=== PATIENT | female | born 1955 | race Caucasian/White ===

== ENCOUNTER 2018-03-21 20:19 | Emergency (ER) | payer OTHER ==
[2018-03-21] MEDS ORDERED: NS 0.9% 1000 ML* 1,000 ML IV ONE (22:32)
[2018-03-21 22:53] LABS: ABS Basophils 0 10^3/ul (0-0.2); ABS Eosinophils 0.1 10^3/ul (0-0.6); ABS Lymphocytes 1.9 10^3/ul (1.0-4.8); ABS Monocytes 0.8 10^3/ul (0-0.8); ABS Neutrophils 3.5 10^3/ul (1.5-7.7); ABS Nucleated RBC 0 10^3/ul; Eosinophil % 1.2 %; Hematocrit 38 % (35-47); Lymphocyte % 29.6 %; Mean Corpuscular HGB Conc 34 g/dl (31-36); Mean Corpuscular Hemoglobin 34 pg (27-31); Mean Corpuscular Volume 100 fL (80-97); Mean Platelet Volume 6.8 fL (7.4-10.4); Nucleated Red Blood Cells % 0.1; Platelet Count 281 10^3/ul (150-450); Red Blood Count 3.83 10^6/ul (4.00-5.40); Red Cell Distribution Width 12 % (10.5-15); White Blood Count 6.3 10^3/ul (3.5-10.8)
[2018-03-21 23:09] LABS: EGFR Non-African American 67.3 (>60)
[2018-03-21] MEDS ORDERED: Iohexol 300* (CONTRAST) 10 ML SDV IV ONE (23:48)
--- NOTE | 2018-03-22 00:34 | ED ---
Abdominal Pain/Female - HPI Summary HPI Summary: Patient complains of diarrhea 1 week with associated abdominal cramping and increased urge to defecate. Patient states diarrhea 7-8 times a day. Abdominal pain described as bilateral lower abdominal cramping, intermittent, relieved with bowel movement. Patient states decreased appetite but tolerating fluids. Denies active abdominal pain at this time. Denies blood in stool, foreign travel, contact exposure, fever, cough, sore throat, CP, SOB, N/V, change in urine. Medical history is none. Abdominal surgical history is positive. Bowel with simultaneous appendectomy 2001, with follow-up surgery 6 months later for anastomosis. - History of Current Complaint Chief Complaint: EDNauseaVomitDiarrh Stated Complaint: DIARRHEA/ABD PAIN Time Seen by Provider: 03/21/18 22:14 Hx Obtained From: Patient Onset/Duration: Gradual Onset, Lasting Days Timing: Intermittent Episode Lasting Severity Currently: None Pain Intensity: 7 Pain Scale Used: 0-10 Numeric Location: Discrete At: RLQ, Discrete At: LLQ, Suprapubic Radiates: No Character: Cramping Aggravating Factor(s): Nothing Alleviating Factor(s): Nothing Associated Signs and Symptoms: Positive: Diarrhea Allergies/Adverse Reactions: Allergies Allergy/AdvReac Type Severity Reaction Status Date / Time No Known Allergies Allergy Verified 03/21/18 20:28 PMH/Surg Hx/FS Hx/Imm Hx Endocrine/Hematology History: Denies: Hx Anticoagulant Therapy, Hx Diabetes Cardiovascular History: Denies: Hx Cardiac Arrest, Hx Hypertension History: Denies: Hx Dialysis, Hx Renal Disease Neurological History: Denies: Hx CVA Psychiatric History: Denies: Hx Autism - Surgical History Surgery Procedure, Year, and Place: OOPHORECTOMY/SALPINGECTOMY (?RIGHT). APPY. BOWEL RESECTION/COLOSTOMY/REVERSAL. HERNIA REPAIR Infectious Disease History: No Infectious Disease History: Denies: Traveled Outside the [place] in Last 30 Days - Family History Known Family History: Positive: Hypertension - Social History Alcohol Use: Weekly Substance Use Type: Reports: None Smoking Status (MU): Light Every Day Tobacco Smoker Amount Used/How Often: PT IN THE PROCESS OF QUITTING Have You Smoked in the Last Year: Yes Review of Systems Constitutional: Negative Eyes: Negative ENT: Negative Cardiovascular: Negative Respiratory: Negative Positive: Abdominal Pain, Diarrhea Genitourinary: Negative Musculoskeletal: Negative Skin: Negative Neurological: Negative Psychological: Normal All Other Systems Reviewed And Are Negative: Yes Physical Exam Triage Information Reviewed: Yes Vital Signs On Initial Exam: Initial Vitals Temp Pulse Resp BP Pulse Ox 98.2 F 73 16 113/68 96 03/21/18 20:24 03/21/18 20:24 03/21/18 20:24 03/21/18 20:24 03/21/18 20:24 Vital Signs Reviewed: Yes Appearance: Positive: Well-Appearing Skin: Positive: Warm Head/Face: Positive: Normal Head/Face Inspection Eyes: Positive: Normal Neck: Positive: Supple Respiratory/Lung Sounds: Positive: Clear to Auscultation Cardiovascular: Positive: Normal Abdomen Description: Positive: Nontender Musculoskeletal: Positive: Normal Neurological: Positive: Normal Psychiatric: Positive: Normal AVPU Assessment: Alert - Lena Coma Scale Best Eye Response: 4 - Spontaneous Best Motor Response: 6 - Obeys Commands Best Verbal Response: 5 - Oriented Coma Scale Total: 15 Diagnostics - Vital Signs Vital Signs Temp Pulse Resp BP Pulse Ox 03/21/18 20:24 98.2 F 73 16 113/68 96 - Laboratory Lab Results: Lab Results 03/21/18 03/21/18 Range/Units 22:40 22:40 WBC 6.3 (3.5-10.8) 10^3/ul RBC 3.83 L (4.00-5.40) 10^6/ul Hgb 13.0 (12.0-16.0) g/dl Hct 38 (35-47) % MCV 100 H (80-97) fL MCH 34 H (27-31) pg MCHC 34 (31-36) g/dl RDW 12 (10.5-15) % Plt Count 281 (150-450) 10^3/ul MPV 6.8 L (7.4-10.4) fL Neut % (Auto) 55.9 % Lymph % (Auto) 29.6 % Ceiba % (Auto) 12.8 % Eos % (Auto) 1.2 % Baso % (Auto) 0.5 % Absolute Neuts (auto) 3.5 (1.5-7.7) 10^3/ul Absolute Lymphs (auto) 1.9 (1.0-4.8) 10^3/ul Absolute Monos (auto) 0.8 (0-0.8) 10^3/ul Absolute Eos (auto) 0.1 (0-0.6) 10^3/ul Absolute Basos (auto) 0 (0-0.2) 10^3/ul Absolute Nucleated RBC 0 10^3/ul Nucleated RBC % 0.1 Sodium 136 (135-145) mmol/L Potassium 3.6 (3.5-5.0) mmol/L Chloride 102 (101-111) mmol/L Carbon Dioxide 30 (22-32) mmol/L Anion Gap 4 (2-11) mmol/L BUN 18 (6-24) mg/dL Creatinine 0.85 (0.51-0.95) mg/dL Est GFR ( Amer) 81.5 (>60) Est GFR (Non-Af Amer) 67.3 (>60) BUN/Creatinine Ratio 21.2 H (8-20) Glucose 102 H (70-100) mg/dL Calcium 9.1 (8.6-10.3) mg/dL Total Bilirubin 0.30 (0.2-1.0) mg/dL AST 12 L (13-39) U/L ALT 10 (7-52) U/L Alkaline Phosphatase 51 (34-104) U/L C-Reactive Protein 1.97 (<8.01) mg/L Total Protein 6.5 (6.4-8.9) g/dL Albumin 4.0 (3.2-5.2) g/dL Globulin 2.5 (2-4) g/dL Albumin/Globulin Ratio 1.6 (1-3) Lipase 28 (11.0-82.0) U/L Result Diagrams: 03/21/18 22:40 03/21/18 22:40 Lab Statement: Any lab studies that have been ordered have been reviewed, and results considered in the medical decision making process. Abdominal Pain Fem Course/Dx - Course Course Of Treatment: Patient complains of diarrhea 1 week with associated abdominal cramping and decreased urge to defecate. Patient states diarrhea 7-8 times a day. Abdominal pain described as bilateral lower abdominal cramping, intermittent, relieved with bowel movement. Patient states decreased appetite but tolerating fluids. Denies active abdominal pain at this time. Denies blood in stool, foreign travel, contact exposure, fever, cough, sore throat, CP , SOB, N/V, change in urine. Medical history is none. Abdominal surgical history is positive. Bowel with simultaneous appendectomy 2001, with follow-up surgery 6 months later for anastomosis. Physical exam: Unremarkable. Vital signs within normal limits. Labs unremarkable. CT abdomen unremarkable. No active abdominal pain or diarrhea while here in the ED. Likely stomach virus. Rx for Bentyl. Plenty of fluids to maintain hydration. Will follow-up with GI if symptoms persist. UA suggests possible asymptomatic UTI. Patient has been advised that she will be called if the culture results are positive for infection. Treatment will be called into the pharmacy if necessary. Patient understands and approves of plan. - Diagnoses Provider Diagnoses: Diarrhea Discharge - Sign-Out/Discharge Documenting (check all that apply): Patient Departure - Discharge Plan Condition: Stable Disposition: HOME Prescriptions: Dicyclomine CAP* [Bentyl CAP*] 20 mg PO TID PRN 10 Days #60 cap PRN Reason: Pain Patient Education Materials: Acute Diarrhea (ED) Referrals: [facility] [Outside] Non Staff,Doctor [Primary Care Provider] - Galo Velazquez DO [Doctor of Osteopathy] - Additional Instructions: Drinking fluids to maintain hydration. Use Imodium if necessary. If symptoms persist follow-up with GI Dr. Walker. Return to the ED for any new or worsening symptoms. - Billing Disposition and Condition Condition: STABLE Disposition: Home
[2018-03-22 00:37] LABS: Urine Appearance Clear; Urine Blood Negative (Negative); Urine Color Straw; Urine Ketones Negative (Negative); Urine Protein Negative (Negative); Urine Red Blood Cell Absent (Absent); Urine Specific Gravity 1.004 (1.010-1.030); Urine Urobilinogen Negative (Negative); Urine White Blood Cell 1+(6-10/hpf) (Absent)
[2018-03-22 01:59] VITALS: BP 136/69
== END 2018-03-22 01:58 | disposition home or self-care (01) ==
LOC: ED 20:19
DX: R19.7 Diarrhea, unspecified (principal); F17.210 Nicotine dependence, cigarettes, uncomplicated
CPT/HCPCS: 36415; 74177; 80053; 81003; 81015; 83690; 85025; 86140; 87086; 96360; 96361; 99283; Q9967